=== PATIENT | male | born 1985 ===

== ENCOUNTER 2020-01-05 17:09 | Inpatient (IN) | payer MEDICAID ==
[~2020-01-05] VITALS: Ht 170.2 cm; Wt 65.8 kg
[2020-01-05 17:40] LABS: BASOPHILS # (AUTO) 0.03 x10^3/uL (0-0.1); BASOPHILS % (AUTO) 0 % (0-1); EOSINOPHILS % (AUTO) 0 % (1-7); LYMPHOCYTES # (AUTO) 0.55 x10^3/uL (1-3.4); LYMPHOCYTES % (AUTO) 5 % (22-44); MD NO; MEAN CORPUSCULAR HEMOGLOBIN 25.7 pg (27.5-34.5); MEAN CORPUSCULAR HGB CONC 32.4 g/dL (33.2-36.2); MEAN CORPUSCULAR VOLUME 79.3 fL (81-97); MEAN PLATELET VOLUME 9.9 fL (7.4-10.4); MONOCYTES # (AUTO) 0.23 x10^3/uL (0.2-0.8); MONOCYTES % (AUTO) 2 % (2-9); NEUTROPHILS # (AUTO) 11.35 x10^3/uL (1.8-6.8); NEUTROPHILS % (AUTO) 93 % (42-75); PLATELET COUNT 201 x10^3/uL (130-400); RED BLOOD COUNT 5.47 x10^6/uL (4.38-5.82); RED CELL DISTRIBUTION WIDTH 13.9 % (9.4-14.8)
[2020-01-05 17:51] LABS: ALBUMIN 3.5 g/dL (3.4-5.0); ANION GAP 11 mmol/L (5-15); CALCIUM 9.1 mg/dL (8.5-10.1); CHLORIDE 111 mmol/L (98-107)
[2020-01-05 17:53] LABS: ALANINE AMINOTRANSFERASE 36 U/L (12-78); ALKALINE PHOSPHATASE 91 U/L (45-117); BILIRUBIN,TOTAL 1.2 mg/dL (0.2-1.0); CREATININE 2.78 mg/dL (0.7-1.3); SALICYLATE LEVEL < 1.7 mg/dL (2.8-20.0); TOTAL PROTEIN 7.7 g/dL (6.4-8.2)
--- NOTE | 2020-01-05 18:02 | NUR ---
REPORT TO LILA PATTERSON
[2020-01-05] MEDS ORDERED: SODIUM CHLORIDE 0.9% 1,000ML IVBOLUS ONE ×2 (18:30→19:00)
[2020-01-05] MEDS ORDERED: PLEASE ENTER ALLERGIES MC SCH (18:30)
[2020-01-05] MEDS ORDERED: ZIPRASIDONE 20 MG INJ IM ONE ×3 (18:59→19:30)
--- NOTE | 2020-01-05 20:25 | NUR ---
REPORT FROM LEONARDO SHARP, INCLUDED THAT THIS PT WAS BIB [facility] AFTER A HOTEL HE WAS STAYING IN CALLED BECAUSE HE WAS "TRYING TO FLOOD IT." THERE WAS FECAL MATTER SMEARED ALL OVER THE ROOM, AND ALL OVER THE PT. 2 IV'S WERE ATTEMPTED, PT PULLED BOTH OUT. PT WAS ABLE TO AMBULATE FROM ROOM 15 TO ROOM 2 WHERE HE IS NOW IN VIEW OF A SITTER. PT WAS CONTINUOUSLY PACING IN THE ROOM AND MAKING IRRELAVENT STATEMENTS. PT WAS MEDICATED TO MAR BY LEONARDO SHARP. UPON THIS RN ASSUMING CARE, FECAL MATTER CAN STILL BE SEEN ON SHOES. PT STANDING WITH EYES CLOSED, RESPIRATIONS EVEN AND UNLABORED. PT NEEDS TO BE REPEATEDLY TOLD TO GET IN BED, AND TO LAY DOWN TO REST. ASSEMBLER FINAL ATTEMPTED TO TAKE PT TO CT. WHILE IN CT, PT REFUSED TO LAY ON HIS BACK. THIS RN TO CT. PT CONTINUOUSLY STATING "PLEASE, I NEED MONEY, IT HURTS, PLEASE." PT RETURNED FROM CT WITHOUT IMAGING COMPLETED. ERP AWARE.
--- NOTE | 2020-01-05 20:58 | NUR ---
ATTEMPT TO CALL REPORT TO FLOOR.
--- NOTE | 2020-01-05 21:04 | NUR ---
PT CONTINUOUSLY OUT OF BED, "I NEED TO GO OUTSIDE, I NEED A LOAD" PT CONTINOUSLY REDIRECTED TO SIT BACK IN BED. PT SITS AND THEN RETURNS TO GETTING OUT OF BED.
--- NOTE | 2020-01-05 21:10 | NUR ---
SECOND ATTEMPT TO CALL REPORT TO THE FLOOR AT THIS TIME.
--- NOTE | 2020-01-05 21:21 | NUR ---
PT UP TO USE URINAL, BACK TO BED AND NOW RESTING. REPORT GIVEN TO GUDELIA ROCHA RN.
[2020-01-05] MEDS ORDERED: hydrALAzine 20 MG/ML, 1ML IVPush PRN (21:30)
[2020-01-05] MEDS ORDERED: PROMETHAZINE 25 MG/ML, 1ML IM PRN (21:30)
[2020-01-05 21:39] LABS: MICROSCOPIC AUTO
[2020-01-05 21:44] LABS: AMPHETAMINE SCREEN, URINE Negative (Negative); BARBITURATE SCREEN, URINE Negative (Negative); BENZODIAZEPINE SCREEN, URINE Positive (Negative); CANNABINOID SCREEN, URINE Positive (Negative); COCAINE SCREEN, URINE Negative (Negative); METHADONE SCREEN, URINE Negative (Negative); OPIATE SCREEN, URINE Positive (Negative)
[2020-01-05 22:01] VITALS: BP 141/86
--- NOTE | 2020-01-05 22:01 | NUR ---
PT A&OX2 AT TIME OF TRANSFER, SECOND LITER OF FLUID HUNG.
[2020-01-05 22:21] LABS: FREE T4 (FREE THYROXINE) 1.46 ng/dL (0.76-1.46)
[2020-01-05] MEDS: LACTATED RINGERS 1,000 ML IV SCH (22:42)
[2020-01-05] MEDS: NICOTINE 14MG/24 HR PATCH.TD24 TD SCH (22:43)
[2020-01-05] MEDS ORDERED: THIAMINE 200 MG in SODIUM CHLORIDE 0.9% 50 ML IV ONE (23:30)
[2020-01-05] MEDS: LORazepam 2 MG/ML, 1ML IVPush PRN (23:45)
[2020-01-06] MEDS: LORazepam 2 MG/ML, 1ML IVPush PRN ×2 (00:06→22:27)
[2020-01-06 00:29] LABS: BASOPHILS # (AUTO) 0.03 x10^3/uL (0-0.1); BASOPHILS % (AUTO) 0 % (0-1); EOSINOPHILS # (AUTO) 0.01 x10^3/uL (0-0.4); EOSINOPHILS % (AUTO) 0 % (1-7); LYMPHOCYTES # (AUTO) 0.81 x10^3/uL (1-3.4); LYMPHOCYTES % (AUTO) 7 % (22-44); MD NO; MEAN CORPUSCULAR HEMOGLOBIN 25.6 pg (27.5-34.5); MEAN CORPUSCULAR HGB CONC 32.2 g/dL (33.2-36.2); MEAN CORPUSCULAR VOLUME 79.4 fL (81-97); MEAN PLATELET VOLUME 10.2 fL (7.4-10.4); MONOCYTES # (AUTO) 0.63 x10^3/uL (0.2-0.8); MONOCYTES % (AUTO) 6 % (2-9); NEUTROPHILS # (AUTO) 10.06 x10^3/uL (1.8-6.8); NEUTROPHILS % (AUTO) 87 % (42-75); PLATELET COUNT 194 x10^3/uL (130-400); RED BLOOD COUNT 5.45 x10^6/uL (4.38-5.82); RED CELL DISTRIBUTION WIDTH 14.3 % (9.4-14.8)
[2020-01-06] MEDS ORDERED: ONDANSETRON 2MG/ML, 2ML IVPush PRN (00:30)
[2020-01-06] MEDS: LEVETIRACETAM 1,000 MG in SODIUM CHLORIDE 0.9% 100 ML IV SCH ×2 (00:32→13:21)
[2020-01-06 00:42] LABS: ALANINE AMINOTRANSFERASE 29 U/L (12-78); ALBUMIN 3.2 g/dL (3.4-5.0); ANION GAP 14 mmol/L (5-15); CHLORIDE 112 mmol/L (98-107); CREATININE 2.88 mg/dL (0.7-1.3)
[2020-01-06 01:08] LABS: ALKALINE PHOSPHATASE 80 U/L (45-117); BILIRUBIN,TOTAL 0.9 mg/dL (0.2-1.0)
[2020-01-06 01:26] VITALS: BP 149/92
[2020-01-06 01:40] LABS: CHLORIDE,URINE RANDOM 56 mmol/L; POTASSIUM,URINE RANDOM 29 mmol/L; SODIUM,URINE RANDOM 65 mmol/L
[2020-01-06 05:37] LABS: BASOPHILS # (AUTO) 0.02 x10^3/uL (0-0.1); BASOPHILS % (AUTO) 0 % (0-1); EOSINOPHILS % (AUTO) 0 % (1-7); LYMPHOCYTES # (AUTO) 0.95 x10^3/uL (1-3.4); LYMPHOCYTES % (AUTO) 9 % (22-44); MD NO; MEAN CORPUSCULAR HEMOGLOBIN 25.6 pg (27.5-34.5); MEAN CORPUSCULAR HGB CONC 32.5 g/dL (33.2-36.2); MEAN CORPUSCULAR VOLUME 78.9 fL (81-97); MEAN PLATELET VOLUME 10.2 fL (7.4-10.4); MONOCYTES # (AUTO) 0.52 x10^3/uL (0.2-0.8); MONOCYTES % (AUTO) 5 % (2-9); NEUTROPHILS # (AUTO) 8.62 x10^3/uL (1.8-6.8); NEUTROPHILS % (AUTO) 85 % (42-75); PLATELET COUNT 179 x10^3/uL (130-400); RED BLOOD COUNT 5.16 x10^6/uL (4.38-5.82); RED CELL DISTRIBUTION WIDTH 13.9 % (9.4-14.8)
[2020-01-06 05:52] LABS: ANION GAP 9 mmol/L (5-15); CHLORIDE 113 mmol/L (98-107)
[2020-01-06 05:55] LABS: CREATINE KINASE, TOTAL 631 U/L (39-308); CREATININE 2.39 mg/dL (0.7-1.3)
[2020-01-06] MEDS: LACTATED RINGERS 1,000 ML IV SCH ×3 (06:18→20:20)
[2020-01-06 06:27] VITALS: BP 136/77
[2020-01-06 12:14] VITALS: BP 135/84
[2020-01-06 18:28] VITALS: BP 132/83
[2020-01-06] MEDS: ACETAMINOPHEN 325 MG TABLET PO PRN (22:27)
[2020-01-06] MEDS: NICOTINE 14MG/24 HR PATCH.TD24 TD SCH (22:27)
[2020-01-07 00:35] VITALS: BP 126/78
[2020-01-07] MEDS: LEVETIRACETAM 1,000 MG in SODIUM CHLORIDE 0.9% 100 ML IV SCH (01:54)
[2020-01-07] MEDS: LACTATED RINGERS 1,000 ML IV SCH (06:00)
[2020-01-07 06:45] VITALS: BP 157/85
[2020-01-07] MEDS: ACETAMINOPHEN 325 MG TABLET PO PRN (09:25)
[2020-01-07 10:12] LABS: BASOPHILS # (AUTO) 0.05 x10^3/uL (0-0.1); BASOPHILS % (AUTO) 1 % (0-1); EOSINOPHILS # (AUTO) 0.07 x10^3/uL (0-0.4); EOSINOPHILS % (AUTO) 1 % (1-7); LYMPHOCYTES # (AUTO) 0.99 x10^3/uL (1-3.4); LYMPHOCYTES % (AUTO) 12 % (22-44); MD NO; MEAN CORPUSCULAR HEMOGLOBIN 25.1 pg (27.5-34.5); MEAN CORPUSCULAR HGB CONC 31.5 g/dL (33.2-36.2); MEAN CORPUSCULAR VOLUME 79.6 fL (81-97); MEAN PLATELET VOLUME 9.8 fL (7.4-10.4); MONOCYTES # (AUTO) 0.33 x10^3/uL (0.2-0.8); MONOCYTES % (AUTO) 4 % (2-9); NEUTROPHILS # (AUTO) 6.87 x10^3/uL (1.8-6.8); NEUTROPHILS % (AUTO) 83 % (42-75); PLATELET COUNT 227 x10^3/uL (130-400); RED BLOOD COUNT 5.29 x10^6/uL (4.38-5.82); RED CELL DISTRIBUTION WIDTH 14.1 % (9.4-14.8)
[2020-01-07 10:20] LABS: ALANINE AMINOTRANSFERASE 28 U/L (12-78); ALBUMIN 3.5 g/dL (3.4-5.0); ANION GAP 7 mmol/L (5-15); CALCIUM 9.4 mg/dL (8.5-10.1); CHLORIDE 114 mmol/L (98-107); CREATININE 2.53 mg/dL (0.7-1.3)
[2020-01-07 10:23] LABS: ALKALINE PHOSPHATASE 76 U/L (45-117); BILIRUBIN,TOTAL 1.4 mg/dL (0.2-1.0); TOTAL PROTEIN 7.3 g/dL (6.4-8.2)
== END 2020-01-07 11:29 | disposition left against medical advice (07) | DRG 812 ==
LOC: ED 20:09 → EDIP 20:29 → 4WST 22:17
PROVIDERS: ADMIT Family Medicine; ATTEND Internal Medicine
DX: T40.601A Poisoning by unspecified narcotics, accidental (unintentional), initial encounter (principal); G92 Toxic encephalopathy; D75.89 Other specified diseases of blood and blood-forming organs; F12.159 Cannabis abuse with psychotic disorder, unspecified; F17.210 Nicotine dependence, cigarettes, uncomplicated; F41.9 Anxiety disorder, unspecified; D72.829 Elevated white blood cell count, unspecified; M62.82 Rhabdomyolysis; N17.0 Acute kidney failure with tubular necrosis; N18.9 Chronic kidney disease, unspecified; R45.851 Suicidal ideations; R56.9 Unspecified convulsions; Z59.0 Homelessness; Z53.29 Procedure and treatment not carried out because of patient's decision for other reasons; Y92.89 Other specified places as the place of occurrence of the external cause
CPT/HCPCS: 36415; 70450; 80048; 80053; 80307; 81001; 82140; 82436; 82550; 82570; 82607; 82962; 83735; 84133; 84300; 84439; 84443; 84481; 85025; 93005; G0378; J1953; J2405; J3411; J3486; J2060; J7030; J7120

== ENCOUNTER 2020-01-07 22:47 | Emergency (ER) | payer MEDICAID ==
[~2020-01-07] VITALS: Ht 177.8 cm; Wt 64.0 kg
[2020-01-07 23:02] VITALS: BP 148/75
--- NOTE | 2020-01-07 23:49 | NUR ---
PT TO ROOM FROM LOBBY
[2020-01-08] MEDS ORDERED: ACETAMINOPHEN 325 MG TABLET PO ONE (00:30)
[2020-01-08] MEDS ORDERED: ACETAMINOPHEN 325 MG TABLET ONE (00:44)
== END 2020-01-08 00:49 ==
LOC: ED 01-08 00:43
DX: M79.662 Pain in left lower leg (principal); M79.661 Pain in right lower leg; F12.10 Cannabis abuse, uncomplicated; F17.210 Nicotine dependence, cigarettes, uncomplicated; Z72.9 Problem related to lifestyle, unspecified
CPT/HCPCS: 99282; 99406

== ENCOUNTER 2020-01-08 03:58 | Emergency (ER) | payer MEDICAID ==
[~2020-01-08] VITALS: Ht 177.8 cm; Wt 61.1 kg
[2020-01-08 04:01] VITALS: BP 142/66
--- NOTE | 2020-01-08 04:12 | NUR ---
FIRST PT CONTACT: PT WALKED BACK TO ROOM WITH A SMOOTH AND STEADY GAIT. NAD. RESTING ON GURNEY, PT STATES "I CAME IN CAUSE MY LEGS HURT" WHEN RN ASKED WHY PT STATES "BECAUSE GEORGE BEEN WALKING ALL DAY". PT WAS SEEN AT THIS ER EARLIER THIS EVENING. PT REQUESTING PAIN MEDICATION FROM THIS RN AT THIS TIME. GROSS NEURO INTACT, PULSES 2+, NO SWELLING OR EDEMA NOTED, PT DENIES ANY TRAUMA. WCTM PT PLACED ON SPO2/BP MONITORING. VSS. GIVEN WARM BLANKETS FOR COMFORT.
[2020-01-08] MEDS ORDERED: ACETAMINOPHEN 325 MG TABLET ONE (04:46)
--- NOTE | 2020-01-08 04:56 | NUR ---
Patient given discharge instructions and they have confirmed that they understand the instructions. Patient ambulatory with steady gait. nad, NO PT BELONGINGS LEFT IN ROOM AFTER DISCHARGE. PT GIVEN TAXI VOUCHER PER REQUEST. PT STATES "I WANT TO JUST TO SLEEP HERE".
[2020-01-08] MEDS ORDERED: ACETAMINOPHEN 325 MG TABLET PO ONE (05:00)
== END 2020-01-08 04:57 | disposition home or self-care (01) ==
LOC: ED 04:34
DX: M79.662 Pain in left lower leg (principal); M79.661 Pain in right lower leg; Z76.5 Malingerer [conscious simulation]; Z72.9 Problem related to lifestyle, unspecified
CPT/HCPCS: 99282

== ENCOUNTER 2020-01-13 02:35 | Emergency (ER) | payer MEDICAID ==
[~2020-01-13] VITALS: Ht 177.8 cm; Wt 61.8 kg
[2020-01-13 02:36] VITALS: BP 117/95
--- NOTE | 2020-01-13 02:45 | NUR ---
PT AMBULATED TO ROOM WITH A STEADY GAIT. AT BEDSIDE.
--- NOTE | 2020-01-13 02:53 | NUR ---
PT GIVEN DISCHARGE PAPERS. PT SAID "I CAN'T WALK" THIS RN WITNESSED PT AMBULATE TO ROOM FROM TRIAGE WITH NO DIFFICULTIES. RN TOLD PT HE WAS BEING DISCHARGED AND SECURITY COULD BE CALLED TO ASSIST WITH HELPING HIM LEAVE. PT SAID "YOU CAN CALL THE POLICE BECAUSE I'LL JUST GO TO [facility]." SECURITY CALLED TO ASSIST PT
--- NOTE | 2020-01-13 03:07 | NUR ---
[facility] CALLED BY SECURITY. [facility] AT BEDSIDE
--- NOTE | 2020-01-13 03:17 | NUR ---
PT LEFT WITH POLICE ESCORT
== END 2020-01-13 03:19 | disposition home or self-care (01) ==
LOC: ED 02:40
DX: M79.661 Pain in right lower leg (principal); M79.662 Pain in left lower leg; Z72.9 Problem related to lifestyle, unspecified
CPT/HCPCS: 99281

== ENCOUNTER 2021-02-07 09:10 | Emergency (ER) | payer MEDICAID ==
[~2021-02-07] VITALS: Ht 177.8 cm; Wt 67.5 kg
[2021-02-07 10:31] LABS: MEAN CORPUSCULAR HEMOGLOBIN 25.7 pg (27.5-34.5); MEAN CORPUSCULAR HGB CONC 32.5 g/dL (33.2-36.2); MEAN PLATELET VOLUME 9.6 fL (7.4-10.4); PLATELET COUNT 173 x10^3/uL (130-400); RED BLOOD COUNT 4.71 x10^6/uL (4.38-5.82)
[2021-02-07 10:40] LABS: ALBUMIN 2.7 g/dL (3.4-5.0); ANION GAP 8 mmol/L (5-15); CALCIUM 7.9 mg/dL (8.5-10.1); CHLORIDE 107 mmol/L (98-107)
[2021-02-07 10:44] LABS: ALANINE AMINOTRANSFERASE 120 U/L (12-78); ALKALINE PHOSPHATASE 132 U/L (45-117); BILIRUBIN,TOTAL 1.2 mg/dL (0.2-1.0); CREATININE 2.51 mg/dL (0.7-1.3); TOTAL PROTEIN 6.8 g/dL (6.4-8.2)
[2021-02-07 11:02] LABS: BAND#(MANUAL) 2.26 x10^3/uL; BANDS%(MANUAL) 19 % (0-7); LYMPH#(MANUAL) 0.36 x10^3/uL (1-3.4); LYMPHS% (MANUAL) 3 % (22-44); MONOS#(MANUAL) 0.48 x10^3/uL (0.3-2.7); MONOS% (MANUAL) 4 % (2-9); SEG#(MANUAL) 8.81 x10^3/uL (1.8-6.8); SEGS% (MANUAL) 74 % (42-75)
[2021-02-07 11:03] LABS: ANISOCYTOSIS 1+; MICROCYTOSIS 1+
[2021-02-07 11:04] LABS: <PLATELET ESTIMATE> ADEQUATE; <PLT MORPHOLOGY> NORMAL PLT MORPH
--- NOTE | 2021-02-07 12:45 | NUR ---
DARYL KAMARA AT .
[2021-02-07 12:57] LABS: MICROSCOPIC INDICATED
[2021-02-07] MEDS ORDERED: SODIUM CHLORIDE 0.9% 1,000ML IVBOLUS ONE (13:00)
[2021-02-07] MEDS ORDERED: SODIUM CHLORIDE 0.9% 1,000 ML IV ONE (13:00)
[2021-02-07] MEDS ORDERED: MORPHINE SULFATE 4 MG/ML, 1ML IVPush PRN (13:00)
[2021-02-07] MEDS ORDERED: SODIUM CHLORIDE FLUSH 10ML SYR IVF ONE (13:00)
[2021-02-07 13:04] LABS: HCT (SEDRATE) 37.3 % (39.2-51.8)
--- NOTE | 2021-02-07 13:12 | NUR ---
PT TO CT VIA [facility].
--- NOTE | 2021-02-07 13:40 | NUR ---
PT BACK FROM CT. ADDITIONAL LABS, BLOOD CX DRAWN. POC RV'WD WITH PT.
[2021-02-07 15:00] VITALS: BP 126/86
--- NOTE | 2021-02-07 15:30 | NUR ---
D/C INSTRUCTIONS & F/U APPT RV'WD WITH PT, HE VERBALIZES UNDERSTANDING. Addendum: 02/07/21 at 1551 by ELIGIO INSTRUCTED PT TO F/U WITH PCP NIDHI AND RETURN TO ED FOR ANY WORSENING SYMPTOMS. AMBULATED OUT OF ED WITHOUT DIFFICULTY.
== END 2021-02-07 15:24 | disposition home or self-care (01) ==
LOC: ED 12:23
DX: N18.9 Chronic kidney disease, unspecified (principal); R94.5 Abnormal results of liver function studies; D53.9 Nutritional anemia, unspecified; D72.825 Bandemia; R31.9 Hematuria, unspecified; M54.5 Low back pain
CPT/HCPCS: 36415; 71045; 72131; 74018; 76770; 80053; 81001; 83605; 83690; 85025; 85651; 86140; 87040; 96360; 96361; 99285; J7030